=== PATIENT | female | born 1955 | race Caucasian/White ===

== ENCOUNTER 2022-01-23 15:13 | Outpatient (RCR) | payer MEDICAID ==
[2022-01-25] MEDS ORDERED: LIPITOR 80MG80 MG PO (10:48)
[2022-01-25] MEDS ORDERED: CYMBALTA 60MG60 MG PO (10:49)
[2022-01-25] MEDS ORDERED: PROTONIX 40MG T40 MG PO (10:49)
[2022-01-25] MEDS ORDERED: TOPROL XL 25MG25 MG PO (10:49)
[2022-01-25] MEDS ORDERED: PROZAC40 MG PO (10:50)
[2022-01-25] MEDS ORDERED: NORCO 325 MG-51 TAB PO (10:52)
[2022-01-25] MEDS ORDERED: 00186-0370-20 IH (10:52)
[2022-01-25] MEDS ORDERED: LYRICA 75MG CAP75 MG PO (10:53)
[2022-01-25] MEDS ORDERED: LASIX 40MG TABL40 MG PO (10:54)
== END 2022-01-31 | disposition home or self-care (01) ==
LOC: WSPT
DX: G89.4 Chronic pain syndrome (principal)

== ENCOUNTER → 2022-01-25 | Outpatient (CLI) | payer MEDICAID ==
[~2022-01-25] VITALS: Ht 170.2 cm; Wt 117.7 kg
[~2022-01-25] MED LIST: 00186-0370-20 IH; CYMBALTA 60MG60 MG PO; LASIX 40MG TABL40 MG PO; LIPITOR 80MG80 MG PO; LYRICA 75MG CAP75 MG PO; NORCO 325 MG-51 TAB PO; PROTONIX 40MG T40 MG PO; PROZAC40 MG PO; TOPROL XL 25MG25 MG PO
[2022-01-25 10:55] VITALS: BP 103/64; PULSE 91; TEMP 99.1
[2022-01-25 12:07] VITALS: BP 112/70; PULSE 61
[2022-01-25 12:21] VITALS: BP 103/49; PULSE 58
[2022-01-25 12:29] VITALS: BP 102/65; PULSE 66
[2022-01-25 12:30] VITALS: BP 89/44; PULSE 70
== END ==
LOC: COL.CARD 10:31
DX: I25.10 Atherosclerotic heart disease of native coronary artery without angina pectoris (principal)
CPT/HCPCS: A9500; J2785

== ENCOUNTER 2022-03-28 20:35 | Emergency (ER) | payer MEDICAID ==
[~2022-03-28] VITALS: Ht 172.7 cm; Wt 111.4 kg
[2022-03-28 20:38] VITALS: TEMP 98.3
[2022-03-28 21:15] LABS: BASO % 0.4 % (0.0-2.0); EOS # 0.1 K/mm3 (0.0-0.7); EOS % 1.5 % (0.0-4.0); GRAN # 2.9 K/mm3 (1.4-6.5); GRAN % 60.6 % (42.2-75.2); HEMATOCRIT 42.9 % (37.0-47.0); HEMOGLOBIN 14.1 g/dl (12.5-16.0); LYMPH # 1.4 K/mm3 (1.2-3.4); LYMPH % 28.5 % (20.0-51.0); MEAN CELL VOLUME 91 fl (80.0-100.0); MEAN CORPUSCULAR HEMOGLOBIN 30 pg (27-31); MEAN CORPUSCULAR HGB CONC 33 g/dl (33.0-37.0); MEAN PLATELET VOLUME 9.8 fl (7.4-10.4); MONO # 0.4 K/mm3 (0.1-0.6); MONO % 8.8 % (1.7-9.3); PLATELET COUNT 134 K/mm3 (130-400); RED BLOOD COUNT 4.74 M/mm3 (4.10-5.30); REDCELL DISTRIBUTION WIDTH-CV 15.3 % (11.5-14.5)
[2022-03-28 21:32] LABS: ALBUMIN 3.9 gm/dL (3.4-4.8); BILIRUBIN,TOTAL 0.5 mg/dL (0.2-1.2); CALCIUM 9.6 mg/dL (8.4-10.2); CREATININE, serum 0.83 mg/dL (0.57-1.11); POTASSIUM 3.8 mmol/L (3.5-4.5); TOTAL PROTEIN 7.1 gm/dL (6.2-8.1)
[2022-03-28 22:13] LABS: COLLECTION METHOD CLEAN CATCH
[2022-03-28 22:35] LABS: MUCOUS Present (NOT PRESENT); PH 5 (5-8); SQUAMOUS EPITHELIAL 0-2 /hpf (0-10); URINE APPEARANCE Clear (CLEAR/HAZY); URINE BACTERIA None Seen /hpf (NONE SEEN); URINE BLOOD Negative (NEGATIVE); URINE COLOR Yellow (YELLOW); URINE GLUCOSE Negative (NEGATIVE); URINE KETONE Negative (NEGATIVE); URINE NITRATE Negative (NEGATIVE); URINE PROTEIN(semi-quant) Negative (NEGATIVE); URINE RBC 0-2 /hpf (0-2); URINE UROBILINOGEN Negative (NEGATIVE)
[2022-03-29 01:01] VITALS: BP 119/73; PULSE 55
== END 2022-03-29 01:06 | disposition home or self-care (01) ==
LOC: COL.ER 20:35
PROVIDERS: Emergency Medicine
DX: R10.32 Left lower quadrant pain (principal); M25.552 Pain in left hip; F17.210 Nicotine dependence, cigarettes, uncomplicated; Z79.891 Long term (current) use of opiate analgesic; Z28.310 Unvaccinated for COVID-19
CPT/HCPCS: J1885; J7030

== ENCOUNTER 2022-04-12 13:30 | Outpatient (RCR) | payer MEDICAID | END 2022-05-25 10:07 | disposition home or self-care (01) | LOC: WSC 13:30 | DX: G89.4 Chronic pain syndrome (principal); J44.9 Chronic obstructive pulmonary disease, unspecified; I25.10 Atherosclerotic heart disease of native coronary artery without angina pectoris; F32.9 Major depressive disorder, single episode, unspecified; K21.9 Gastro-esophageal reflux disease without esophagitis; I10 Essential (primary) hypertension; F17.210 Nicotine dependence, cigarettes, uncomplicated ==

== ENCOUNTER 2022-12-26 15:00 | Outpatient (RCR) | payer MEDICARE, MEDICAID | END 2022-12-31 | disposition home or self-care (01) | LOC: WSC | DX: M54.50 Low back pain, unspecified (principal) ==